=== PATIENT | male | born 1990 ===

== ENCOUNTER 2017-06-01 11:16 | Day surgery (SDC) | payer OTHER ==
[~2017-06-01 11:16] MED LIST: Buffered Lidocaine 0.9% SYRIN* 5 ML/SYR SYRINGE INTRADERM ONE
[2017-06-01] MEDS ORDERED: ceFAZolin 2 GM PREMIX (*) 2 GM/50 ML BAG IVPB ONE (12:28)
[2017-06-01] MEDS ORDERED: Bupivacaine 0.25% SDV* 30 ML ONE (13:05)
[2017-06-01] MEDS ORDERED: Lidocaine 2% PF * 5 ML VIAL ONE (13:16)
[2017-06-01] MEDS ORDERED: Propofol* 10 MG/ML 20 ML BTL IV PUSH ONE ×2 (13:16→16:18)
[2017-06-01] MEDS ORDERED: Dexamethasone IV* 4 MG/ML 1 ML (4 MG) ONE (13:16)
[2017-06-01] MEDS ORDERED: Midazolam* 1 MG/ML 2 ML VIAL (2 MG) ONE (13:17)
[2017-06-01] MEDS ORDERED: fentaNYL* 50 MCG/ML 2 ML VIAL (100 MCG VIAL) ONE ×2 (13:17→14:29)
[2017-06-01] MEDS ORDERED: fentaNYL* 50 MCG/ML 2 ML VIAL (100 MCG VIAL) IV PRN (13:24)
[2017-06-01] MEDS ORDERED: Ondansetron INJ* 2 MG/ML VIAL IV PRN (13:24)
[2017-06-01] MEDS ORDERED: Ketorolac INJ* 30 MG/ML 1 ML VIAL ONE (14:29)
[2017-06-01] MEDS ORDERED: Ondansetron INJ* 2 MG/ML VIAL ONE (17:15)
[2017-06-01 17:26] VITALS: BP 132/82
[2017-06-01] MEDS ORDERED: HYDROcodone/ACETAMIN 5-325 MG* 1 TAB ONE (17:30)
--- NOTE | 2017-06-02 05:00 | OP ---
OPERATIVE REPORT: DATE OF OPERATION: 06/01/17 - [place] DATE OF : 89 SURGEON: Yossi Huddleston MD CHILD & ADOLESCENT PSYCHIATRIST: CATALINA Avila An teacher's assistant was needed for the entirety of the procedure to aid in positioning of the arm, retraction, reduction, and instrumentation. ANESTHESIOLOGIST: Dr. Luna. ANESTHESIA: General. 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 OPERATIVE PROCEDURE: Repair of left scaphoid nonunion with autogenous distal radius bone graft and internal fixation. INDICATIONS: Roman is an inmate. He has a severe nonunion with significant humpback deformity. He is having quite a bit of wrist pain. He had come to the office. We had reviewed the treatment and the potential complications including the risk of failure of the nonunion repair necessitating the additional surgery. He also understood the risk of infection and other complications. He also understood the risks of persistent pain despite surgery. ESTIMATED BLOOD LOSS: 10 mL. COMPLICATIONS: None. FINDINGS: As expected. DESCRIPTION OF PROCEDURE: Roman was seen in the preoperative holding area. The correct side, site, and procedure were identified. We came back to the operating room, and the arm was prepped and draped in the usual fashion after anesthesia was induced. A time-out was performed. The arm was exsanguinated with the Esmarch and the tourniquet was inflated to 250 mmHg. An incision was made longitudinally over the distal aspect of the FCR and brought obliquely back towards the base of the first metacarpal. Dissection was carried down and the FCR tendon sheath was opened. The tendon was retracted ulnarly. The subsheath was released. The capsular ligaments were identified. The radioscaphocapitate ligament was incised in light with the scaphoid to expose the scaphoid. The nonunion was identified. I placed 0.45 K-wires in the proximal pole and distal pole and then extended and supinated the distal pole and flexed the proximal pole. The nonunion was curetted out. There was abundant fibrous tissue that had to be curetted until it got back to nice bleeding bone. Once I had the nonunion curated out my defect noted, I measured and then I went proximally where I released the portion of the pronator quadratus off the radial aspect of the radius and then used a very small drill bit to outline my graft harvest site. I then completed the osteotomy. The unicortical osteotomy with the osteotome. Cortical cancellous graft was harvested. The graft was contoured to size. I had opened up a little bit of volar cortex on the distal and proximal poles of the scaphoid with a joleen. I went ahead and placed the cortical cancellous graft in the nonunion. It provided a nice strut graft. It took some contouring of the graft and it took a bit of time to get that to fit right. It was a very nice cortical strut holding the scaphoid out to length. I then came distally and opened up the joint between the distal fold of the scaphoid and the trap so I would excise the volar rim of trapezoid. I placed my guidewire and brought that down to the proximal pole of the scaphoid. Alignment of the wire was checked on fluoroscopy. I then over drilled the wire. It was measuring 24, so I selected a 20 length Acutrak screw, mini Acumed Acutrak screw. This was then placed in standard fashion. There was an excellent purchase. He had very hard bone. The compression across the strut graft was excellent. The wound was then irrigated out. I went ahead and took some more cancellous graft for my distal radius and packed that all around the margins. I got some final fluoroscopic imaging. Things looked good. The scaphoid was definitely moving as 1 piece and was very solidly fixed. I then took a 3-0 Ethibond and repaired the volar capsular ligament and got almost all of the scaphoid covered with just a little bit of the distal pole, not completely covered. The pronator quadratus was repaired with 4-0 Vicryl suture. The wound was then irrigated out copiously. The skin was closed with 3- 0 Monocryl suture and Steri-Strips. The wound was dressed with 4x4's, sterile Webril and thumb spica splint was placed. Tourniquet was deflated. Total tourniquet time was just 150 minutes. The arm had been exsanguinated and the tourniquet inflated to 250 mmHg prior to making skin incision. He was then woken up and taken to the recovery room in stable condition. [id number]/[facility] #: [id number] [facility] LAWRENCE HEALTH SYSTEMKenji
--- NOTE | 2017-06-06 10:03 | RAD ---
CPT II Codes: 6045F INDICATION: Chronic left scaphoid nonunion fracture TECHNIQUE: Intraoperative fluoroscopy was provided during bone graft transplant and screw ORIF of the left scaphoid. FINDINGS: 4 spot films depict bone graft harvest site at the distal left radius and anatomic alignment of intramedullary screw spanning the previously malalignment left scaphoid. Fluoroscopy time: 1 minute and 41 seconds IMPRESSION: As above.
== END 2017-06-01 17:49 | disposition home or self-care (01) ==
LOC: OREAST 11:16
PROVIDERS: ATTEND Orthopaedic Surgery Hand Surgery
DX: S62.002K Unspecified fracture of navicular [scaphoid] bone of left wrist, subsequent encounter for fracture with nonunion (principal); F17.200 Nicotine dependence, unspecified, uncomplicated; J45.909 Unspecified asthma, uncomplicated; F19.11 Other psychoactive substance abuse, in remission; Y04.2XXD Assault by strike against or bumped into by another person, subsequent encounter; Y92.9 Unspecified place or not applicable
CPT/HCPCS: 76000; C1713; C1776; J0690; J1100; J1885; J2250; J2405; J2704; J3010